=== PATIENT | male | born 1950 ===

== ENCOUNTER → 2018-05-21 13:26 | Outpatient (REF) | payer MEDICARE, SELFPAY ==
[2018-05-21 13:58] LABS: Alanine Aminotransferase 32 IU/L (21-72); Albumin 4.2 g/dL (3.5-5.0); Albumin Globulin Ratio 1.3 (1.0-2.8); Alkaline Phosphatase 77 U/L (38-126); Aspartate Aminotransferase 29 IU/L (17-59); BUN Creatinine Ratio 24.3 (6-22); Bilirubin Total 0.8 mg/dL (0.2-1.3); Blood Urea Nitrogen 17 mg/dL (9-20); Carbon Dioxide 27 mmol/L (22-32); Chloride 105 mmol/L (98-107); Cholesterol 139 mg/dL (140-199); Estimated Glomerular Filt Rate > 60.0 mL/min (>60); Globulin 3.3 g/dL (1.7-4.1); Glucose 212 mg/dL (80-110); HDL Cholesterol 38 mg/dL (40-60); HEMOLYSIS < 15 (0-50); LDL Cholesterol Calculated 52 mg/dL (<100); Sodium 144 mmol/L (137-145); Total Protein 7.5 g/dL (6.3-8.2); Triglycerides 246 mg/dL (35-150)
[2018-05-21 13:59] LABS: Hemoglobin A1C% w Est Avg Glu 9.3 % (4.0-6.0)
[2018-05-21 14:01] LABS: Potassium 5.4 mmol/L (3.4-5.1)
[2018-05-21 14:30] LABS: Thyroid Stimulating Hormone 2.49 uIU/mL (0.47-4.68)
[2018-05-24 14:10] LABS: PSA, Total 0.3 ng/mL (< 4.1)
== END ==
LOC: LAB 13:26
PROVIDERS: Visit Provider Family Medicine
DX: Z12.5 Encounter for screening for malignant neoplasm of prostate (principal); Z13.6 Encounter for screening for cardiovascular disorders; Z13.1 Encounter for screening for diabetes mellitus; Z13.228 Encounter for screening for other metabolic disorders
CPT/HCPCS: 36415; 80053; 80061; 83036; 84153; 84154; 84443